=== PATIENT | female | born 1965 | race Caucasian/White ===

== ENCOUNTER 2017-06-28 09:51 | Emergency (ER) | payer BC ==
[2017-06-28 10:11] VITALS: BP 134/91; PULSE 99; RESP 18; TEMP 97.5; O2SAT 96
--- NOTE | 2017-06-28 10:33 | EDPHY ---
H & P Time Seen by Provider: 06/28/17 10:06 HPI/ROS: CHIEF COMPLAINT: right ankle pain HISTORY OF PRESENT ILLNESS: 52-year-old female presents with right ankle pain. Yesterday she twisted her ankle while moving some potted plants indoors. Immediate onset of moderate pain. The pain increases with weight-bearing and walking. No associated symptoms. No other injuries. ROS: No numbness, weakness, bleeding, syncopal episode, other injury. Past Medical/Surgical History: Anxiety Smoking Status: Former smoker Physical Exam: Alert, pleasant Extremities: Right ankle with swelling and ecchymosis over the lateral malleolus. There is no posterior lateral malleolus tenderness, midfoot tenderness, or proximal fifth metatarsal tenderness. The ankle is stable and the Achilles tendon is intact. Vascular: Pedal pulses 2+ Neurologic: Ankle and foot with normal sensation and strength Skin: Intact Constitutional: Initial Vital Signs Temperature (C) 36.4 C 06/28/17 10:07 Heart Rate 99 06/28/17 10:07 Respiratory Rate 18 06/28/17 10:07 Blood Pressure 134/91 H 06/28/17 10:07 O2 Sat (%) 96 06/28/17 10:07 O2 Delivery Mode Room Air Allergies/Adverse Reactions: codeine Allergy (Verified 06/28/17 10:06) Penicillins Allergy (Verified 06/28/17 10:06) Home Medications: Medication Instructions Recorded NK [No Known Home Meds] 06/28/17 Medical Decision Making - Diagnostics Imaging Results: X-ray independently reviewed by me reveals no acute fracture. ED Course/Re-evaluation: X-ray results discussed with the patient. An ankle stirrup splint was placed and crutches dispensed. Departure - Departure Disposition: Home, Routine, Self-Care Clinical Impression: Right ankle sprain Qualifiers: Encounter type: initial encounter Involved ligament of ankle: tibiofibular ligament Qualified Code(s): S93.431A - Sprain of tibiofibular ligament of right ankle, initial encounter Condition: Good Instructions: Ankle Sprain (ED), Ankle Stirrup Splint (ED) Additional Instructions: Ibuprofen 600 mg 3 times daily while the pain persists. Referrals: Kevon Han MD [Medical Doctor] - 5-7 days, if not improved
== END 2017-06-28 10:42 | disposition home or self-care (01) ==
LOC: CED 09:51
DX: S93.431A Sprain of tibiofibular ligament of right ankle, initial encounter (principal); Z87.891 Personal history of nicotine dependence; X58.XXXA Exposure to other specified factors, initial encounter
CPT/HCPCS: 73610-PO; L4350